=== PATIENT | male | born 1960 | race Caucasian/White ===

== ENCOUNTER → 2020-09-10 09:09 | Outpatient (CLI) | payer OTHER, SELFPAY | PROVIDERS: Visit Provider Surgery | DX: Z20.822 Contact with and (suspected) exposure to COVID-19 (principal) | CPT/HCPCS: U0003 ==

== ENCOUNTER 2020-09-12 09:09 | Day surgery (SDC) | payer OTHER, SELFPAY ==
[2020-09-10 10:30] VITALS: BMI 29.2
[2020-09-12 09:26] VITALS: BP 105/75; PULSE 55; RESP 18; TEMP 36.2; O2SAT 98
--- NOTE | 2020-09-12 10:40 | HMH.OPNOTE ---
Date of procedure: 09/12/20 Pre-op Diagnosis:: Basal cell carcinoma along the right posterior neck (1 cm) Post-op Diagnosis:: Same Procedure performed:: Excision of 1 cm right posterior neck basal cell carcinoma Surgeon:: Socrates Shankar MD Anesthesia: local Estimated blood loss (mL): 5 Operative findings:: Basal cell carcinoma excision taken into deep subcutaneous tissue Operative note:: After informed consent was obtained the patient was taken to the procedure room. His right posterior neck was prepped and draped in a sterile fashion. After infiltration with local anesthetic an elliptical incision was made around the lesion. The deep subcutaneous tissue was sharply dissected. The lesion was excised in toto and passed off for pathologic evaluation after the superior and lateral margins were marked with suture (short superior/long lateral). Electrocautery was utilized to achieve hemostasis. Skin was then reapproximated with interrupted 4-0 nylon. Dressings were applied and the patient was discharged in stable condition. Condition: stable Disposition: no change Specimens:: Right posterior neck basal cell carcinoma Complications:: No immediate
[2020-09-12 10:43] VITALS: BP 132/75; PULSE 55; RESP 16; TEMP 36.4; O2SAT 98
== END 2020-09-12 10:54 | disposition home or self-care (01) ==
LOC: OUTP 09:11
PROVIDERS: PCP Family Medicine; Visit Provider Surgery
PROC: (CPT 11621; principal; 2020-09-12 10:30)
DX: C44.41 Basal cell carcinoma of skin of scalp and neck (principal); I10 Essential (primary) hypertension; Z79.899 Other long term (current) drug therapy
CPT/HCPCS: 11621

== ENCOUNTER → 2020-10-08 09:20 | Outpatient (CLI) | payer OTHER, SELFPAY | PROVIDERS: Visit Provider Surgery | DX: Z01.812 Encounter for preprocedural laboratory examination (principal); Z20.822 Contact with and (suspected) exposure to COVID-19; Z12.11 Encounter for screening for malignant neoplasm of colon | CPT/HCPCS: U0003 ==

== ENCOUNTER 2020-10-10 06:04 | Day surgery (SDC) | payer OTHER, SELFPAY ==
[2020-10-08 13:58] VITALS: BMI 29.2
[2020-10-10 06:25] VITALS: BP 125/59; PULSE 65; RESP 18; TEMP 36.3; O2SAT 97
--- NOTE | 2020-10-10 07:15 | HMH.ANESCL ---
[facility] Anesthesia Checklist - Patient Identification Patient Identification: Arm Band - Structural Data Admitted From: Home Planned Operative Procedure/s: colonoscopy Consent for Planned Operative Procedure(s) Verified: Yes Verified Documents: Surgical Consent, History and Physical - NPO Status Verified Time NPO: 00:00 - Additional verifications Anesthesia Reactions: No Hx Blood Transfusions: No Blood Transfusion Reaction: No - Airway Assessment C-Spine Mobility Assessed: Yes (mp2) TMJ Mobility Assessed: Yes Dentition: Good Dentition - Neurological Assessment Level of Consciousness: Awake, Alert - Anesthesia Plan Anesthesia Risk discussed: Yes Anesthesia Plan: Verified ASA Class: II Anesthesia Type: MAC [facility] History I have reviewed the patient's past medical history: Yes Medical History: Reports:: Cancer (basal cell neck), Hypertension Denies:: Diabetes Mellitus Type 1, Diabetes Mellitus Type 2, Internal Pacemaker, Lung Disease, MRSA, Seizures *Have you ever received a pneumonia vaccine?: No *Have you received a flu vaccine this season?: No Other Medical History: Reports: Other. Denies: Blood Transfusion Reaction Anesthesia experience/problems:: nac Laterality Cases: Bilateral: Other Other Surgeries: Yes: Colonoscopy, Other. No: Pacemaker Amputation: No Fractures: Yes (left lower extremity, right ankle) - *Social History Last grade of school completed: 7th or 8th Smoking Status: Never smoker Alcohol Intake: never Alcohol Intake Frequency:: holidays/special occasions only Substance Use Type: denies use *Occupational Status:: employed Housing: house Household Members: other *Travel in the last 8 weeks: None Family Hx:: No significant family history
[2020-10-10 07:17] VITALS: O2SAT 97
--- NOTE | 2020-10-10 07:45 | HMH.SCOPE ---
- Procedure: Date: 10/10/20 Patient Date of :: 1960 Procedure Performed:: Colonoscopy with polypectomy by means other than snare Indications:: History of colon polyps (multiple large complex polyps noted in 2019) Performing Provider:: Socrates Shankar MD Referring Provider:: . Sedation:: Monitored anesthesia care Procedure:: After informed consent was obtained the patient was taken to the endoscopy suite. Sedation ensued after the patient was transferred to the left lateral decubitus position. Pulse, blood pressure, and oxygen saturation were monitored throughout the procedure. Digital rectal exam revealed no significant abnormality. The colonoscope was placed in position. The entire colon was evaluated. The colonoscope was carefully removed and the patient was transferred to recovery in stable condition. Please see findings and specimens below for detail. Findings:: Bowel preparation fair to moderate with large volume irrigation and suctioning used to improve visualization Fairly severe sigmoid spasticity Moderate tortuosity Mild firmness of prostate Polyp at 50 cm Specimens:: Polyp at 50 cm Recommendations:: Timing of repeat colonoscopy is pending pathology but will likely be around 3 years secondary to history of large complex polyps and spasticity/tortuosity. Complications:: No immediate Estimated blood obtained (mL): 1
[2020-10-10 07:47] VITALS: BP 81/46; PULSE 55; RESP 18; TEMP 36.2; O2SAT 95
[2020-10-10 07:57] VITALS: BP 86/49; PULSE 52; RESP 18; O2SAT 94
[2020-10-10 08:11] VITALS: BP 112/79; PULSE 56; RESP 18; O2SAT 95
== END 2020-10-10 08:14 | disposition home or self-care (01) ==
LOC: OUTP 06:05
PROVIDERS: PCP Family Medicine; Visit Provider Surgery
PROC: 0DJD8ZZ Inspection of Lower Intestinal Tract, Via Natural or Artificial Opening Endoscopic (ICD-10-PCS; CPT 45380; principal; 2020-10-10 07:30)
DX: Z12.11 Encounter for screening for malignant neoplasm of colon (principal); K63.5 Polyp of colon; K56.2 Volvulus; K58.9 Irritable bowel syndrome, unspecified; Z86.010 Personal history of colon polyps; I10 Essential (primary) hypertension; Z79.899 Other long term (current) drug therapy; Z85.828 Personal history of other malignant neoplasm of skin
CPT/HCPCS: 45380

== ENCOUNTER → 2021-11-15 08:51 | Outpatient (CLI) | payer OTHER, SELFPAY | PROVIDERS: PCP Family Medicine; Visit Provider Surgery | DX: Z01.812 Encounter for preprocedural laboratory examination (principal); Z20.822 Contact with and (suspected) exposure to COVID-19; Z12.11 Encounter for screening for malignant neoplasm of colon; Z86.010 Personal history of colon polyps | CPT/HCPCS: C9803; U0003; U0005 ==

== ENCOUNTER 2021-11-18 07:12 | Day surgery (SDC) | payer OTHER, SELFPAY ==
[2021-11-14 13:56] VITALS: BMI 29.0
[2021-11-18] VITALS (7 sets, daily range): BP systolic 105–159; BP diastolic 63–84; PULSE 55–72; RESP 18; TEMP 36.3–36.5; O2SAT 93–97
--- NOTE | 2021-11-18 08:17 | P.PN_ITS ---
[facility] Medical History Hyperlipidemia Hypertension No significant past medical history Polymyalgia Skin cancer Family History Other Family history of diabetes mellitus type II Family history of myocardial infarction Social History (Updated 11/18/21 @ 07:33 by Melonie Fierro RN) Smoking Status: Never smoker alcohol intake: never substance use type: denies use current occupational status: employed Travel in the last 8 weeks: None household members: other housing: house caffeine: Yes [facility] Anesthesia Checklist Patient Identification Patient Identification: Arm Band and Verbal (Name & ) Structural Data Admitted From: Home Planned Operative Procedure/s: Colonoscopy Consent for Planned Operative Procedure(s) Verified: Yes NPO Status Verified Time NPO: 05:00 (Prep) Additional verifications Anesthesia Reactions: No Hx Blood Transfusions: No Blood Transfusion Reaction: No Airway Assessment C-Spine Mobility Assessed: Yes TMJ Mobility Assessed: Yes Dentition: Partials Neurological Assessment Hx Seizures: No Numbness or tingling in extremities: No Anesthesia Plan Anesthesia Risk discussed: Yes Anesthesia Plan: Verified ASA Class: II Anesthesia Type: MAC
--- NOTE | 2021-11-18 08:53 | P.PCN_ITS ---
Procedure: Date: 11/18/21 Patient Date of :: 1960 Procedure Performed:: Colonoscopy with polypectomy by means other than snare Indications:: History of sessile serrated adenoma at 50 cm noted in September 2020. Colonoscopy at this time was also somewhat limited secondary to spasticity/tortuosity/moderate bowel preparation. Some prostatic firmness noted on prior evaluation. Patient and primary care pro vider aware. Performing Provider:: Socrates Shankar MD Referring Provider:: Dr. Levy Sedation:: Monitored anesthesia care Procedure:: After informed consent was obtained the patient was taken to the endoscopy suite. Sedation ensued after the patient was transferred to the left lateral decubitus position. Pulse, blood pressure, and oxygen saturation were monitored throughout the procedure. Digital rectal exam revealed mild prostatic firmness (more pronounced on right). This was unchanged. The colonoscope was placed in position. The entire colon was evaluated. The colonoscope was carefully removed and the patient was transferred to recovery in stable condition. Please see findings and specimens below for detail. Findings:: Mild unchanged firmness of prostate (more pronounced on right) Bowel preparation fair to moderate Moderate spasticity/lack of relaxation Significant improvement with regard to tortuosity Small polyp at 20 cm Specimens:: Small polyp at 20 cm (cold biopsy forceps) Recommendations:: Timing of repeat colonoscopy is pending pathology but will likely be between 3-5 years. Complications:: No immediate Estimated blood obtained (mL): 1
== END 2021-11-18 09:40 | disposition home or self-care (01) ==
PROVIDERS: PCP Family Medicine; Visit Provider Surgery
PROC: 0DJD8ZZ Inspection of Lower Intestinal Tract, Via Natural or Artificial Opening Endoscopic (ICD-10-PCS; CPT 45380; principal; 2021-11-18 08:30)
DX: Z12.11 Encounter for screening for malignant neoplasm of colon (principal); K63.5 Polyp of colon; Z86.010 Personal history of colon polyps; Z79.899 Other long term (current) drug therapy
CPT/HCPCS: 45380; J2704